=== PATIENT | female | born 1955 | race Caucasian/White ===

== ENCOUNTER 2016-12-19 12:53 | Outpatient (RCR) | payer OTHER ==
--- OUTSIDE RECORDS SUMMARY | 2016-11-20 09:47 | XMS REPORT | Continuity of Care Document ---
Author Author [facility] Organization [facility] Address Unknown Phone Unavailable Care Team Providers Care Clay Transporter Name Role Phone BG FONTENOT MD PCP Insurance Providers Payer Name Policy Number Subscriber Name Relationship [employer] [id number] Jarad Odom 20 Self / Same As Patient Advance Directives Directive Response Recorded Date/Time Advance Directives No 04/12/15 7:07pm Organ Donor No 04/12/15 7:07pm Resuscitation Status Full Code 04/12/15 7:07pm Problems Medical Problems Problem Onset Date Status Concussion with no loss of consciousness Unknown Active Fall on same level from slipping Unknown Active abrasion of scalp Unknown Active contusion of scalp Unknown Active strain of neck/back muscles Unknown Active Sinusitis Unknown Active Cellulitis Unknown Active Medications Medication Dose Route Sig Days/Qty Instructions Order Date Discontinued Date Status Aspirin 09/11/09 Active Tramadol HCl 50 Mg PO FOUR TIMES DAILY 30 Qty 1-2 tabs qid prn pain 09/1111/15/13 Discontinued Naproxen 1 Each PO TWICE A DAY 20 Qty 09/11/09 11/15/13 Discontinued [Glaucoma Drops] 09/11/09 11/15/13 Discontinued [Synthroid] 09/11/09 Active Levothyroxine Sodium 75 Mcg PO DAILY 11/15/13 Active Bimatoprost 2.5 Ml OP BEDTIME 11/15/13 Active Hydrocodone Bit/Acetaminophen 1 Tab PO EVERY 4HRS PRN PAIN 20 Qty 11/15 Active Cyclobenzaprine HCl (Flexeril) 1 Each PO Q8HR PRN PRN SPASMS 14 Qty 01/23 Active Levofloxacin 1 Each PO DAILY 10 Qty 11/15/13 Active Trimethoprim/Sulfamethoxazole 1 Ea PO TWICE A DAY 14 Qty 04/12/15 Active Social History Social History Problem Response Recorded Date/Time Alcohol Use Rarely Uses 04/12/2015 7:07pm Recreational Drug Use No 04/12/2015 7:07pm Recent Foreign Travel No 04/12/2015 7:07pm Recent Infectious Disease Exposure No 04/12/2015 7:07pm Hospitalization with Isolation Denies 04/12/2015 7:07pm Smoking Status Never a Smoker 04/12/2015 7:07pm Query Response Start Date Stop Date Smoking Status Never a Smoker Hospital Discharge Instructions No hospital discharge instructions. Plan of Care No plan of care. Functional Status No functional status results. Allergies, Adverse Reactions, Alerts Allergen Type Severity Reaction Status Last Updated Cephalexin Allergy Mild Active 09/11/09 Immunizations Name Given Type Tetanus Booster (TDap) Unknown Historical Vital Signs Acute Vital Signs Vital Response Date/Time Temperature (Fahrenheit) 99.4 degrees F (97.6 - 99.5) Temperature (Calculated Celsius) 37.31485 degrees C (36.4 - 37.5) Temperature Source Temporal Pulse Rate (adult) 86 bpm (60 - 90) Respiratory Rate 18 bpm (12 - 24) O2 Sat by Pulse Oximetry 97 % (88 - 100) Blood Pressure 128/98 mm Hg Pain Pain Intensity 6 Height (Feet) 5 feet Height (Inches) 6 inches Height (Calculated Centimeters) 167.622158 cm Weight (Pounds) 145 pounds Weight (Calculated Kilograms) 65.033554 kilograms Calculated BMI 23.40 Results Laboratory Results Test Name Result Units Flags Reference Collection Date/Time Result Date/ Time Comments White Blood Count 9.0 10^3/uL 4.3-11.0 04/12/2015 7:10pm 04/12/2015 7: 41pm Red Blood Count 4.35 10^6/uL 4.35-5.85 04/12/2015 7:10pm 04/12/2015 7: 41pm Hemoglobin 13.9 G/DL 11.5-16.0 04/12/2015 7:1004/12/2015 7:41pm Hematocrit 41 % 35-52 04/12/2015 7:1004/12/2015 7:41pm Mean Corpuscular Volume 95 FL 80-99 04/12/2015 7:1004/12/2015 7: 41pm Mean Corpuscular Hemoglobin 32 PG 25-34 04/12/2015 7:10pm 04/12/2015 7: 41pm Mean Corpuscular Hemoglobin Concent 34 G/DL 32-36 04/12/2015 7:1011/2014 7:41pm Red Cell Distribution Width 12.4 % 10.0-14.5 04/12/2015 7:10pm 2014 7:41pm Platelet Count 303 10^3/uL 130-400 04/12/2015 7:10pm 04/12/2015 7:41pm Mean Platelet Volume 9.4 FL 7.4-10.4 04/12/2015 7:10pm 04/12/2015 7: 41pm Neutrophils (%) (Auto) 69 % 42-75 04/12/2015 7:1004/12/2015 7:41pm Lymphocytes (%) (Auto) 23 % 12-44 04/12/2015 7:10pm 04/12/2015 7:41pm Monocytes (%) (Auto) 6 % 0-12 04/12/2015 7:1004/12/2015 7:41pm Eosinophils (%) (Auto) 2 % 0-10 04/12/2015 7:10pm 04/12/2015 7:41pm Basophils (%) (Auto) 0 % 0-10 04/12/2015 7:1004/12/2015 7:41pm Neutrophils # (Auto) 6.1 X 10^3 1.8-7.8 04/12/2015 7:10pm 04/12/2015 7: 41pm Lymphocytes # (Auto) 2.0 X 10^3 1.0-4.0 04/12/2015 7:10pm 04/12/2015 7: 41pm Monocytes # (Auto) 0.6 X 10^3 0.0-1.0 04/12/2015 7:10pm 04/12/2015 7: 41pm Eosinophils # (Auto) 0.2 10^3/uL 0.0-0.3 04/12/2015 7:1004/12/2015 7 :41pm Basophils # (Auto) 0.0 10^3/uL 0.0-0.1 04/12/2015 7:10pm 04/12/2015 7: 41pm Prothrombin Time 12.6 SEC 12.2-14.7 04/12/2015 7:10pm 04/12/2015 7: 35pm INR Comment 1.0 0.8-1.4 04/12/2015 7:1004/12/2015 7:35pm INTERPRETIVE DATA SUGGESTED THERAPEUTIC RANGE FOR INR'S: VENOUS THROMBOSIS, PULMONARY EMBOLISM, OR PREVENTION OF SYSTEMIC EMBOLISM (EG. IN ATRIAL FIBRILLATION): 2.0 - 3.0 MECHANICAL PROSTHETIC HEART VALVES: 2.5 - 3.5* *NOTE: INR'S UP TO 4.5 MAY BE NECESSARY IN SELECTED GROUPS OF HIGH RISK PATIENTS. [employer] CONSENSUS CONFERENCE ON ANTITHROMBOTIC THERAPY (2000). Activated Partial Thromboplast Time 29 SEC 24-35 04/12/2015 7:1011/2014 7:35pm D-Dimer 0.32 UG/ML 0.00-0.49 04/12/2015 7:10pm 04/12/2015 7:39pm Sodium Level 142 MMOL/L 135-145 04/12/2015 7:1004/12/2015 7:43pm Potassium Level 3.9 MMOL/L 3.6-5.0 04/12/2015 7:1004/12/2015 7:43pm Chloride Level 108 MMOL/L H 98-107 04/12/2015 7:1004/12/2015 7:43pm Carbon Dioxide Level 24 MMOL/L 21-32 04/12/2015 7:1004/12/2015 7: 43pm Blood Urea Nitrogen 19 MG/DL H 7-18 04/12/2015 7:1004/12/2015 7:43pm Creatinine 0.71 MG/DL 0.60-1.30 04/12/2015 7:1004/12/2015 7:43pm BUN/Creatinine Ratio 27 04/12/2015 7:1004/12/2015 7:43pm Estimat Glomerular Filtration Rate > 60 04/12/2015 7:102014 7:43pm GFR INTERPRETIVE DATA UNITS FOR ESTIMATED GFR (eGFR): mL/min/1.73 M2 REFERENCE RANGE FOR ESTIMATED GFR (eGFR) eGFR NORMAL eGFR >60 MODERATELY DECREASED eGFR 30-59 SEVERLY DECREASED eGFR 15-29 KIDNEY FAILURE <15 (OR DIALYSIS) Glucose Level 104 MG/DL 70-105 04/12/2015 7:10pm 04/12/2015 7:43pm Calcium Level 9.2 MG/DL 8.5-10.1 04/12/2015 7:10pm 04/12/2015 7:43pm Total Bilirubin 0.6 MG/DL 0.1-1.0 04/12/2015 7:1004/12/2015 7:43pm Alkaline Phosphatase 77 U/L 40-136 04/12/2015 7:10pm 04/12/2015 7:43pm Aspartate Amino Transf (AST/SGOT) 35 U/L H 5-34 04/12/2015 7:10pm 2014 7:43pm Alanine Aminotransferase (ALT/SGPT) 25 U/L 0-55 04/12/2015 7:10pm 04/12 7:43pm Total Protein 7.6 G/DL 6.4-8.2 04/12/2015 7:10pm 04/12/2015 7:43pm Albumin 4.4 G/DL 3.2-4.5 04/12/2015 7:10pm 04/12/2015 7:43pm Procedures No known history of procedures. Encounters Encounter Location Date/Time Departed Emergency Room Via [facility] 04/12/15 6:58pm Recent Diagnosis
[~2016-12-19 12:53] MED LIST: ASPI-892; BIMA2.5D4 OP; CYCL10TA9 PO; GLAUCOMA DROPS; HYDR-1231 PO; LEVO500T69 PO; LEVO75TA6 PO; NAPR-243 PO; SULF-222 PO; SYNTHROID; TRM50T PO
== END 2017-01-06 11:29 | disposition home or self-care (01) ==
PROVIDERS: ATTEND Nurse Practitioner Family
DX: Z48.89 Encounter for other specified surgical aftercare (principal)

== ENCOUNTER 2017-01-28 05:39 | Outpatient (CLI) | payer OTHER ==
[~2017-01-28] VITALS: Ht 174 cm; Wt 62.1 kg
[2017-01-28] MEDS ORDERED: LEVO75TA PO (11:10)
== END 2017-01-28 11:15 ==
LOC: PREOP 05:39
PROVIDERS: ATTEND Internal Medicine
DX: Z01.818 Encounter for other preprocedural examination (principal); K62.5 Hemorrhage of anus and rectum

== ENCOUNTER 2017-01-30 07:08 | Day surgery (SDC) | payer OTHER ==
[~2017-01-30] VITALS: Ht 174 cm; Wt 62.1 kg
[~2017-01-30 07:08] MED LIST changes: +LEVO75TA PO
[2017-01-30] MEDS ORDERED: 1/2 NS IV SOLUTION 1,000 ML IV STA (07:27)
[2017-01-30] MEDS ORDERED: 1/2 NS IV SOLUTION 1,000 ML IV ONE (07:29)
[2017-01-30] MEDS ORDERED: FLUMAZENIL (ROMAZICON) 0.1 MG/ML 5 ML VIAL INJ PRN (07:30)
[2017-01-30] MEDS ORDERED: LIDOCAINE JELLY 2% (XYLOCAINE) 5 ML TUBE MM PRN (07:30)
[2017-01-30] MEDS ORDERED: MIDAZOLAM 2 MG/2 ML (VERSED) VIAL IVP PRN (07:30)
[2017-01-30] MEDS ORDERED: NALOXONE 0.4 MG/ML 1 ML (NARCAN) VIAL IVP PRN (07:30)
[2017-01-30 07:40] VITALS: BP 127/84
--- NOTE | 2017-01-30 07:54 | HISTORY AND PHYSICAL ---
DATE OF ADMISSION: 01/30/2017 DICTATING PHYSICIAN: Dr. Peter Mrs. Odom is a 61-year-old white female who is set-up for a screening colonoscopy. She does report intermittent bright red blood per rectum and it usually follows the passage of a hard stool. She reports intermittent constipation. She reports her mother had some form of colon surgery. She does not believe it was colon cancer but she is not sure. Her mother at age 73 of complications from coronary artery disease. Father at the age of 77 of complications of heart disease as well and had a heart attack and coronary artery bypass grafting. She has recuperated from recent right CMC arthroplasty per Dr. Ordaz which occurred on 09/15. She is pleased with the results and reports no ongoing pain or swelling. 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 She is only up 2 pounds by our office scales compared to 6 months ago. Otherwise she reports that she feels well. PAST MEDICAL HISTORY: Significant for: 1. Pulmonary embolism following immobility and a left DVT in 1988 for which she received an IVC filter. She has been off of anticoagulation therapy since that time with no recurrent thromboembolic disease. 2. She has a history of reflux disease for which he underwent Filipe fundoplication in 2003. 3. She has history of open angle glaucoma. FAMILY HISTORY: Stated in the HPI. SOCIAL HISTORY: She works as a rural mail contractor. Reports no significant alcohol intake. As I recall, does have a past 20 pack-year smoking history. I will need to ask her about the specifics on this to make sure that this is an accurate statement. PAST SURGICAL HISTORY: Significant for: 1. Right CMC arthroplasty on 09/15/2016. 2. She had cataract surgery 10/2008. 3. Filipe fundoplication in 09/2004. PHYSICAL EXAMINATION: Reveals a normal weight white female, appears to be in no acute distress. VITAL SIGNS: Blood pressure was 146/84. CHEST: Clear. CV: Revealed a regular rate and rhythm without murmur, S3 or S4. ABDOMEN: Soft, supple without masses, organomegaly or tenderness. EXTREMITIES: Reveal no cyanosis, clubbing, or edema. Scarring was nearly undetectable about the right thumb base and wrist with nearly normal range of motion. OA changes with Heberden's nodes, mild were noted of the hands with no inflammatory change. IMPRESSION: 1. 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 2. Rectal bleeding for which the patient has been set-up for diagnostic colonoscopy. Prep instructions with the Anthony prep kit were given and questions were answered. She was scheduled for the 30 of January. 3. Elevated blood pressure, mild. Discussed salt reduction as there is a family history for hypertension and increasing fruits and vegetables in her diet. I will see her back in 6 months for routine follow-up. Job ID: [id number] Dictated Date: 01/25/2017 07:43:00 Satellite Specialist Date: 01/26/2017 12:28:44/martha
[2017-01-30] MEDS ORDERED: LIDOCAINE JELLY 2% (XYLOCAINE) 5 ML TUBE ONE (08:02)
[2017-01-30] MEDS ORDERED: MIDAZOLAM 2 MG/2 ML (VERSED) VIAL ONE ×2 (08:02)
[2017-01-30] MEDS ORDERED: fentaNYL INJECTION 100 MCG/2 ML AMP ONE (08:02)
--- NOTE | 2017-01-30 08:06 | Pre-Op Note & Conscious Sedat ---
Pre-Operative Progress Note H&P Reviewed The H&P was reviewed, patient examined and no changes noted. Date H&P Reviewed: Jan 30, 2017 Time H&P Reviewed: 08:05 Conscious Sedation Pre-Proced ASA Class: 2 Airway Mallampati Classification: (wainwright appropriate class) I. II. III, IV Lungs Heart ASA score ASA 1: a normal healthy patient ASA 2: a patient with a mild systemic disease (mid diabetes, controlled hypertension, obesity ASA 3: a patient with a severe systemic disease that limits activity (angina , COPD, prior Myocardial infarction) ASA 4: a patient with an incapacitating disease that is a constant threat to life (CHF, renal failure) ASA 5: a moribund patient not expected to survive 24 hrs. (ruptured aneurysm) ASA 6: a declared brain patient whose organs are being harvested. For emergent operations, add the letter E after the classification Grade 2 Sedation Plan: Analgesia, Amnesia, Plan communicated to team members, Discussed options with patient/fam, Discussed risks with patient/fam Note The patient is an appropriate candidate to undergo the planned procedure, sedation, and anesthesia. The patient immediately re-assessed prior to indication. BG FONTENOT MD Jan 30, 2017 08:05
[2017-01-30] MEDS: fentaNYL INJECTION 100 MCG/2 ML AMP IVP PRN ×2 (08:10→08:23)
[2017-01-30 09:15] VITALS: BP 96/65
[2017-01-30 09:45] VITALS: BP 118/69
[2017-01-30 09:48] VITALS: BP 118/69
--- NOTE | 2017-01-30 15:04 | OPERATIVE REPORT ---
DATE OF SERVICE: PROCEDURE PERFORMED: Screening colonoscopy. The patient was placed in the left lateral decubitus position. Prior to undergoing colonoscopy, a digital rectal examination was performed. Anal sphincter tone was normal and the perianal reflex is intact. No abnormalities are noted to digital inspection of the anal canal or distal rectal vault. Colonoscopy was inserted into the rectum and under direct visualization and advanced to the cecum. The cecum was identified by identification of the ileocecal valve and the cecal strap. Photographic documentation was obtained. Careful inspection was made as the colonoscope was withdrawn. The quality of the prep was good. FINDINGS: No evidence for internal or external hemorrhoids and the rectum, sigmoid colon, descending colon and transverse colon were unremarkable. Present in the distal ascending colon were several arteriovenous malformations. A photograph was obtained. There was no evidence for bleeding. No evidence for neoplasia was identified. The remainder of the ascending colon and cecum was unremarkable. ASSESSMENT: No evidence for neoplasia was noted on today's evaluation. No evidence for diverticular disease was noted. Several arteriovenous malformations were noted in the distal ascending colon. There was no evidence for blood in the colon or evidence for bleeding from these lesions. This was an otherwise normal colonoscopy. The patient was reassured by today's findings. Job ID: [id number] DocumentID: [id number] Dictated Date: 01/30/2017 13:00:01 Green Energy Marketing Analyst Date: 01/30/2017 15:03:18 Dictated By: BG FONTENOT MD [facility]
== END 2017-01-30 09:57 | disposition home or self-care (01) ==
LOC: ENDO 07:08
PROVIDERS: ATTEND Internal Medicine
DX: Z12.11 Encounter for screening for malignant neoplasm of colon (principal); Q27.33 Arteriovenous malformation of digestive system vessel

== ENCOUNTER → 2019-10-06 | Outpatient (CLI) | payer OTHER ==
--- NOTE | 2019-10-06 18:45 | Diagnostic Imaging Report ---
INDICATION: Routine screening. COMPARISON: Comparison is made with prior mammograms from 08/20/2017 and 06/10/2016. TECHNIQUE: 2-D and 3-D bilateral screening mammography was performed. The current study was also evaluated with a Computer Aided Detection (CAD) system. 3-D tomosynthesis was also performed and reviewed. FINDINGS: Both breasts remain heterogeneously dense, limiting the sensitivity of mammography. Biopsy clips are noted in both breasts. Scattered benign calcifications are noted. No dominant mass or malignant-appearing microcalcifications are seen. Axillae are unremarkable. IMPRESSION: No mammographic features suspicious for malignancy are identified. ACR BI-RADS Category 2: Benign findings. Result letter will be mailed to the patient. Note: At least 10% of breast cancer is not imaged by mammography. Dictated by: Dictated on workstation # [id number]
== END ==
LOC: RAD 07:30
PROVIDERS: ATTEND Obstetrics & Gynecology
DX: Z12.31 Encounter for screening mammogram for malignant neoplasm of breast (principal)
CPT/HCPCS: 77067

== ENCOUNTER 2020-12-31 16:15 | Emergency (ER) | payer OTHER ==
[~2020-12-31] VITALS: Ht 172 cm; Wt 66.6 kg
[~2020-12-31 16:15] MED LIST changes: -AZIT250T12 PO
[2020-12-31 16:37] VITALS: BP 127/91
--- NOTE | 2020-12-31 16:51 | ED Respiratory ---
General Chief Complaint: Respiratory Problems Stated Complaint: SOB/HX OF PULMONARY EMBOLISM Nursing Triage Note: PT PRESENTS TO ED WITH COMPLAINTS OF SOAX 2-3 DAYS. REPORTS SHE ALSO HAS SOME MEDIAL CHEST PRESSURE. PT REPORTS SHE WAS SEEN AT DR SMITH OFFICE AND SWABBED FOR COVID WHICH WAS NEGATIVE. Source: patient, family Exam Limitations: no limitations (LUTHER BAY MD) History of Present Illness Date Seen by Provider: Dec 31, 2020 Time Seen by Provider: 16:37 Initial Comments Patient is a 65-year-old female who presents to the emergency department today with a chief complaint of shortness of breath and chest pressure. Patient states that she is beginning progressively short of breath over the last several weeks however, in the last 2 to 3 days it has been significant. Patient states that she is fairly active and she is able to ride a exercise bike. Patient states the last time she has been on it was 3 days ago. Patient states that she is conversationally short of breath and even walking down her driveway she gets very short of breath, walking up and down stairs. Patient has a history of massive pulmonary embolism back in the 1980s. She has had a history of a DVT in her leg in the past as well. Patient is on daily aspirin therapy. She denies any fevers or chills, she denies productive cough. Patient is endorsing some chest pressure/heaviness. She currently rates it at about a "5". It is nonradiating. Patient states it seems to be worse with exertion. Patient has a family history of family members with heart disease specifically her parents who both in their 70s. She also has a history of familial clotting disorder but she states she tested negative in the past. Patient denies any recent fevers, chills, GI or symptoms. She is a non- smoker. Patient tells me that she has a [place] filter in place. All other review of systems reviewed and negative except as stated. Timing/Duration: getting worse Severity: moderate Modifying Factors: Improves With Rest Associated Symptoms: wheezing (LUTHER BAY MD) Allergies and Home Medications Allergies Coded Allergies: cephalexin (Unverified Allergy, Mild, 01/28/17) Home Medications Bimatoprost 2.5 Ml Drops, 2.5 ML OP HS, (Reported) Levothyroxine Sodium 75 Mcg Tablet, 75 MCG PO DAILY, (Reported) Patient Home Medication List Home Medication List Reviewed: Yes (LUTHER BAY MD) Review of Systems Review of Systems Constitutional: see HPI EENTM: no symptoms reported Respiratory: dyspnea on exertion, short of breath, wheezing Cardiovascular: chest pain (pressure) Gastrointestinal: no symptoms reported Genitourinary: no symptoms reported : No Musculoskeletal: no symptoms reported Skin: no symptoms reported Psychiatric/Neurological: No Symptoms Reported (LUTHER BAY MD) Past Hcuxesz-Fkgybe-Bofujt Hx Patient Social History Alcohol Use: Denies Use Smoking Status: Never a Smoker Recent Infectious Disease Expo: No Recent Hopitalizations: No (LUTHER BAY MD) Immunizations Up To Date Tetanus Booster (TDap): Unknown Date of Influenza Vaccine: Jul 21, 2016 (LUTHER BAY MD) Seasonal Allergies Seasonal Allergies: Yes (MILD) (LUTHER BAY MD) Past Medical History Surgeries: Yes (VENA CAVA FILTER, HIATAL HERNIA, CATARACTS, HAND SURGERY) Respiratory: Yes Pulmonary Embolism Cardiac: No Neurological: Yes Headaches /Migraines Reproductive Disorders: No Sexually Transmitted Disease: No HIV/AIDS: No Gastrointestinal: No Chronic Constipation Musculoskeletal: Yes Arthritis, Chronic Back Pain, Fractures Endocrine: Yes Hypothyroidsim Cataract, Glaucoma Cancer: No Psychosocial: No Integumentary: No Blood Disorders: Yes (BLOOD CLOTS) Adverse Reaction/Blood Tranf: No (LUTHER BAY MD) Physical Exam Vital Signs - First Documented 12/31/20 16:37 Pulse 70 Resp 18 B/P (MAP) 127/91 (103) Pulse Ox 98 (JEAN,SUYAPA J) Capillary Refill : Less Than 3 Seconds (LUTHER BAY MD) Height: 5'8.50" Weight: 137lbs. 0.0oz. 62.326508ja; 22.00 BMI Method:Stated General Appearance: WD/WN, no apparent distress Eyes: Bilateral Eye Normal Inspection, Bilateral Eye PERRL, Bilateral Eye EOMI HEENT: PERRL/EOMI Neck: full range of motion, supple, normal inspection Respiratory: no respiratory distress, no accessory muscle use, wheezing (Scattered expiratory wheezes noted on on the left no increased work of breathing. Patient is very mildly conversationally dyspneic) Cardiovascular: regular rate, rhythm Gastrointestinal: non tender, soft Extremities: non-tender, normal inspection, no pedal edema, no calf tenderness, normal capillary refill Neurologic/Psychiatric: alert, normal mood/affect, oriented x 3 Skin: normal color, warm/dry (LUTHER BAY MD) Progress/Results/Core Measures Suspected Sepsis Recent Fever Within 48 Hours: No Infection Criteria Present: None New/Unexplained Altered Menta: No Sepsis Screen: No Definite Risk SIRS Temperature: Pulse: 70 Respiratory Rate: 18 Laboratory Tests 12/31/20 16:30: White Blood Count 10.2 Blood Pressure 127 /91 Mean: 103 Laboratory Tests 12/31/20 16:30: Creatinine 0.74, Platelet Count 335 (LUTHER BAY MD) Results/Orders Lab Results Laboratory Tests Test 12/31/20 16:30 Range/Units White Blood Count 10.2 4.3-11.0 10^3/uL Red Blood Count 4.53 3.80-5.11 10^6/uL Hemoglobin 14.5 11.5-16.0 g/dL Hematocrit 43 35-52 % Mean Corpuscular Volume 95 80-99 fL Mean Corpuscular Hemoglobin 32 25-34 pg Mean Corpuscular Hemoglobin Concent 34 32-36 g/dL Red Cell Distribution Width 12.2 10.0-14.5 % Platelet Count 335 130-400 10^3/uL Mean Platelet Volume 9.5 9.0-12.2 fL Immature Granulocyte % (Auto) 0 % Neutrophils (%) (Auto) 62 42-75 % Lymphocytes (%) (Auto) 26 12-44 % Monocytes (%) (Auto) 8 0-12 % Eosinophils (%) (Auto) 4 0-10 % Basophils (%) (Auto) 1 0-10 % Neutrophils # (Auto) 6.3 1.8-7.8 10^3/uL Lymphocytes # (Auto) 2.6 1.0-4.0 10^3/uL Monocytes # (Auto) 0.8 0.0-1.0 10^3/uL Eosinophils # (Auto) 0.4 H 0.0-0.3 10^3/uL Basophils # (Auto) 0.1 0.0-0.1 10^3/uL Immature Granulocyte # (Auto) 0.0 0.0-0.1 10^3/uL Neutrophils % (Manual) 6 % Lymphocytes % (Manual) 25 % Monocytes % (Manual) 5 % Eosinophils % (Manual) 4 % Blood Morphology Comment NORMAL Sodium Level 141 135-145 MMOL/L Potassium Level 3.6 3.6-5.0 MMOL/L Chloride Level 107 98-107 MMOL/L Carbon Dioxide Level 21 21-32 MMOL/L Anion Gap 13 5-14 MMOL/L Blood Urea Nitrogen 11 7-18 MG/DL Creatinine 0.74 0.60-1.30 MG/DL Estimat Glomerular Filtration Rate > 60 BUN/Creatinine Ratio 15 Glucose Level 96 70-105 MG/DL Calcium Level 9.4 8.5-10.1 MG/DL Total Creatine Kinase 212 H 29-168 U/L Creatine Kinase MB 4.4 <6.6 NG/ML Troponin I < 0.028 <0.028 NG/ML (SUYAPA PENA) My Orders Orders - SUYAPA PENA Iohexol Injection (Omnipaque 350 Mg/Ml 1 (12/31/20 18:30) Received Contrast (Hold Metformin- Contr (12/31/20 18:30) Sodium Chloride Flush (Catheter Flush Sy (12/31/20 18:30) Ns (Ivpb) (Sodium Chloride 0.9% Ivpb Bag (12/31/20 18:30) (SUYAPA PENA) Medications Given in ED Current Medications Medications Dose Ordered Sig/Norman Route Start Time Stop Time Status Last Admin Dose Admin Diphenhydramine HCl 25 mg ONCE ONCE IVP 12/31/20 18:30 12/31/20 18:32 DC 12/31/20 18:38 25 MG Iohexol 100 ml ONCE ONCE IV 12/31/20 18:30 12/31/20 18:31 DC 12/31/20 19:17 65 ML Methylprednisolone Sodium Succinate 80 mg ONCE ONCE IV 12/31/20 18:30 12/31/20 18:32 DC 12/31/20 18:38 80 MG Sodium Chloride 10 ml NEEDED PRN IV 12/31/20 18:30 12/31/20 19:17 10 ML Sodium Chloride 100 ml ONCE ONCE IV 12/31/20 18:30 12/31/20 18:31 DC 12/31/20 19:17 70 ML (SUYAPA PENA) Vital Signs/I&O 12/31/20 16:37 Pulse 70 Resp 18 B/P (MAP) 127/91 (103) Pulse Ox 98 (SUYAPA PENA) Vital Signs/I&O Capillary Refill : Less Than 3 Seconds (LUTHER BAY MD) Blood Pressure Mean: 103 Progress Note : Progress Note Assumed care of the patient at shift change from Dr. Bay. I agree with the above documented history and physical exam. The patient is having some chest pressure and shortness of air with a strong history of pulmonary ballismus, DVT and a family predisposition for pulmonary embolisms. She has a [place] filter in place. Her troponin and EKG are unremarkable. She is soon to go to CT for an angiogram of her chest. (SUYAPA PENA) ECG Initial ECG Impression Date: Dec 31, 2020 Initial ECG Impression Time: 17:36 Initial ECG Rate: 63 Initial ECG Rhythm: Normal Sinus Initial ECG Intervals: Normal Initial ECG Impression: Normal (LUTHER BAY MD) Diagnostic Imaging Diagonstic Imaging: CT Plain Films/CT/US/NM/MRI: chest Comments NAME: JARAD CÁRDENAS [facility] REC#: [id number] PT STATUS: REG ER : 1955 PHYSICIAN: LUTHER BAY MD ADMIT DATE: 12/31/20/ER Signed Date of Exam:12/31/20 CT ANGIO CHEST W PROCEDURE: CT angiography of the chest with contrast. TECHNIQUE: Multiple contiguous axial images were obtained through the chest after uneventful bolus administration of intravenous contrast. 3D reconstructed CTA MIP acquisitions were also performed. Auto Exposure Controls were utilized during the CT exam to meet ALARA standards for radiation dose reduction. INDICATION: Short of breath, dyspnea, history of pulmonary emboli. Patient was given Benadryl and steroids prior to the examination. Symptoms for 2 to 3 days. Previous [place] filter placement. COMPARISON STUDY: There are no pertinent studies. FINDINGS: No pulmonary emboli are present. There is no evidence of right heart dysfunction. The heart size is normal. No pleural or pericardial effusions are present. No aortic aneurysm or dissection is present. No significant vascular calcifications are seen. There is a moderate sized hiatal hernia. No abnormal adenopathy is present. Visualized portions of the abdomen demonstrate an IVC filter in place. The lungs demonstrate calcified granuloma in the right upper lobe. Lungs are otherwise clear. No osseous lesions are present. There are diffuse degenerative changes and scoliosis. No stenosis is evident. An IVC filter is in place. IMPRESSION: 1. No pulmonary embolism is present. 2. An IVC filter is in place. 3. There is a moderate sized hiatal hernia. Dictated by: Dictated on workstation # [id number] Dict: 12/31/201912 Trans: 12/31/20 1950 [facility] [id number] Interpreted by: TOREY WEAVER MD Electronically signed by: TOREY WEAVER MD 12/31/201949 Reviewed: Reviewed by Me (SUYAPA PENA) Departure Impression Primary Impression: Walking pneumonia Disposition: HOME, SELF-CARE Condition: Stable Departure-Patient Inst. Decision time for Depature: 19:58 (SUYAPA PENA) Referrals: BG FONTENOT MD (PCP/Family) Primary Care Physician Patient Instructions: Atypical Pneumonia (Mycoplasma and Viral) (DC) Add. Discharge Instructions: While I do not see any evidence of a large bacterial pneumonia on your imaging I suspect you may have an atypical pneumonia most often caused by viruses or other certain bacteria. We will put you on some azithromycin as this may help. 2 tablets of azithromycin followed by 1 tablet daily until it is gone for a total of 5 days. Albuterol inhaler 2 puffs every 4 hours as necessary for wheezing, coughing or tightness in your chest. Vapor rubs such as Vicks or Mentholatum. Keep your follow-up appointment on with your primary care doctor for reevaluation. Summary we will call you in the next 2 days with the results of your Covid testing. Return to the nearest ER promptly if you experience worsening shortness of air, chest pain or other worrisome symptoms despite the above interventions. All discharge instructions reviewed with patient and/or family. Voiced understanding. Scripts Azithromycin (Azithromycin) 250 Mg Tablet 250 MG PO UD, #6 TAB TAKE 2 TABLETS ON DAY ONE THEN TAKE 1 TABLET DAILY FOR FOUR MORE DAYS Prov: SUYAPA PENA 12/31/20 Work/School Note: Work Release Form Date Seen in the Emergency Department: Dec 31, 2020 Return to Work: Jan 03, 2021 Restrictions: No Restrictions Other Restrictions Listed Below: If Covid positive off isolation after 10 days and 72 hours symptom-free. Restrictions: Off quarantine when 72 hour symptom-free without medications to mask fever. Copy Copies To 1: BG FONTENOT MD, KATHRYN M MD Dec 31, 2020 16:51 SUYAPA PENA Dec 31, 2020 18:17
[2020-12-31 17:15] LABS: BUN/CREATININE RATIO 15; CALCIUM 9.4 MG/DL (8.5-10.1); CARBON DIOXIDE 21 MMOL/L (21-32); CHLORIDE 107 MMOL/L (98-107); CREATINE KINASE 212 U/L (29-168); CREATININE SERUM 0.74 MG/DL (0.60-1.30); GFR ESTIMATED > 60; GLUCOSE 96 MG/DL (70-105); POTASSIUM 3.6 MMOL/L (3.6-5.0); SODIUM 141 MMOL/L (135-145)
[2020-12-31 17:18] LABS: BASOPHILS # (AUTO) 0.1 10^3/uL (0.0-0.1); BASOPHILS % (AUTO) 1 % (0-10); EOSINOPHILS # (AUTO) 0.4 10^3/uL (0.0-0.3); EOSINOPHILS % (AUTO) 4 % (0-10); HEMATOCRIT 43 % (35-52); HEMOGLOBIN 14.5 g/dL (11.5-16.0); LYMPHOCYTES # (AUTO) 2.6 10^3/uL (1.0-4.0); LYMPHOCYTES % (AUTO) 26 % (12-44); MEAN CORPUSCULAR HEMOGLOBIN 32 pg (25-34); MEAN CORPUSCULAR HGB CONC 34 g/dL (32-36); MEAN CORPUSCULAR VOLUME 95 fL (80-99); MEAN PLATELET VOLUME 9.5 fL (9.0-12.2); MONOCYTES # (AUTO) 0.8 10^3/uL (0.0-1.0); MONOCYTES % (AUTO) 8 % (0-12); NEUTROPHILS # (AUTO) 6.3 10^3/uL (1.8-7.8); NEUTROPHILS % (AUTO) 62 % (42-75); PLATELET COUNT 335 10^3/uL (130-400); WHITE BLOOD COUNT 10.2 10^3/uL (4.3-11.0)
[2020-12-31 17:21] LABS: CREATINE KINASE MB 4.4 NG/ML (<6.6)
--- NOTE | 2020-12-31 17:38 | Diagnostic Imaging Report ---
INDICATION: Shortness air, upper anterior chest pressure. FINDINGS: Portable view of the chest demonstrates some calcified granulomas in the right upper lobe. Lungs are otherwise clear. Heart size is upper normal with normal vascularity. There are no pleural effusions. IMPRESSION: There are no acute findings. Dictated by: Dictated on workstation # [id number]
[2020-12-31 18:23] LABS: EOSINOPHILS % (MANUAL) 4 %; LYMPHOCYTES % (MANUAL) 25 %; MONOCYTES % (MANUAL) 5 %; NEUTROPHILS % (MANUAL) 6 %; RBC MORPH NORMAL
[2020-12-31] MEDS ORDERED: methylPREDNISolone 40 MG/ML (Solu-MEDROL) VIAL IV ONE (18:30)
[2020-12-31] MEDS ORDERED: NS 100 ML (IVPB) BAG IV ONE (18:30)
[2020-12-31] MEDS ORDERED: HOLD METFORMIN - RECEIVED CONTRAST 20 ML VIAL IV SCH (18:30)
[2020-12-31] MEDS ORDERED: diphenhydrAMINE 50 MG/ML INJ (BENADRYL) IVP ONE (18:30)
[2020-12-31] MEDS ORDERED: CATHETER FLUSH 10 ML SYR IV PRN (18:30)
[2020-12-31] MEDS ORDERED: IOHEXOL 350 MG/ML 100 ML (OMNIPAQUE 350) VIAL IV ONE (18:30)
--- NOTE | 2020-12-31 19:33 | Diagnostic Imaging Report ---
PROCEDURE: CT angiography of the chest with contrast. TECHNIQUE: Multiple contiguous axial images were obtained through the chest after uneventful bolus administration of intravenous contrast. 3D reconstructed CTA MIP acquisitions were also performed. Auto Exposure Controls were utilized during the CT exam to meet ALARA standards for radiation dose reduction. INDICATION: Short of breath, dyspnea, history of pulmonary emboli. Patient was given Benadryl and steroids prior to the examination. Symptoms for 2 to 3 days. Previous [place] filter placement. COMPARISON STUDY: There are no pertinent studies. FINDINGS: No pulmonary emboli are present. There is no evidence of right heart dysfunction. The heart size is normal. No pleural or pericardial effusions are present. No aortic aneurysm or dissection is present. No significant vascular calcifications are seen. There is a moderate sized hiatal hernia. No abnormal adenopathy is present. Visualized portions of the abdomen demonstrate an IVC filter in place. The lungs demonstrate calcified granuloma in the right upper lobe. Lungs are otherwise clear. No osseous lesions are present. There are diffuse degenerative changes and scoliosis. No stenosis is evident. An IVC filter is in place. IMPRESSION: 1. No pulmonary embolism is present. 2. An IVC filter is in place. 3. There is a moderate sized hiatal hernia. Dictated by: Dictated on workstation # [id number]
[2020-12-31] MEDS ORDERED: AZIT250T12 PO (20:00)
== END 2020-12-31 20:18 | disposition home or self-care (01) ==
LOC: EDUNIT# 16:15 → ER 16:17
DX: J18.8 Other pneumonia, unspecified organism (principal); E03.9 Hypothyroidism, unspecified; Z86.711 Personal history of pulmonary embolism; Z86.718 Personal history of other venous thrombosis and embolism; Z79.890 Hormone replacement therapy; Z88.1 Allergy status to other antibiotic agents
CPT/HCPCS: 71045; 71275; 80048; 82550; 82553; 84484; 85007; 85027; U0002; 36415; 87635; 93005

== ENCOUNTER → 2020-12-31 | Outpatient (CLI) | payer OTHER ==
[~2020-12-31] MED LIST changes: +AZIT250T12 PO
[2020-12-31 16:11] LABS: BUN/CREATININE RATIO 14; CREATININE SERUM 0.78 MG/DL (0.60-1.30); GFR ESTIMATED > 60
== END ==
LOC: RAD 15:32 → LAB 15:40
PROVIDERS: ATTEND Nurse Practitioner Family
DX: Z53.9 Procedure and treatment not carried out, unspecified reason (principal)
CPT/HCPCS: 36415; 82565; 84520

== ENCOUNTER → 2021-10-14 | Outpatient (CLI) | payer OTHER ==
[~2021-10-14] MED LIST changes: +AZIT250T12 PO
--- NOTE | 2021-10-14 13:07 | Diagnostic Imaging Report ---
PROCEDURE: US carotid duplex bilateral. TECHNIQUE: Multiple Real-time grayscale images were obtained over the carotid arteries in various projections bilaterally. Additional spectral analysis and color Doppler duplex images were also obtained. INDICATION: Right carotid bruit. FINDINGS: There is minimal plaque in both carotid systems. The velocities are normal bilaterally. No velocity elevation or stenosis is identified. Both vertebral arteries show antegrade flow. IMPRESSION: No evidence of a hemodynamically significant stenosis. Parameters based on the consensus panel Conrad-Scale and Doppler ultrasound criteria published August 2003, Radiology, Volume 229. DOPPLER (peak systolic velocity M/S Right Left CCA .91 .85 ICA Proximal .68 .64 ICA Mid .83 .69 ICA Distal .71 .65 RATIO .91 .81 ECA .78 .94 VERT .38 .49 Dictated by: Dictated on workstation # [id number]
== END ==
LOC: RAD 12:30
PROVIDERS: ATTEND Internal Medicine
DX: R09.89 Other specified symptoms and signs involving the circulatory and respiratory systems (principal)
CPT/HCPCS: 93880